=== PATIENT | male | born 1945 | race Caucasian/White ===

== ENCOUNTER 2016-12-25 11:36 | Inpatient (IN) | payer OTHER ==
--- NOTE | ~2016-12-25 | EKG ---
PATIENT: SAEID DEL RIO UNIT #: [id number] Ventricular Rate: 62 BPM Atrial Rate: 62 BPM P-R Interval: 176 ms QRS Duration: 76 ms Q-T Interval: 404 ms QTC Calculation(Bezet): 410 ms P [place]: 32 degrees Calculated R [place]: 55 degrees Calculated T [place]: 56 degrees Diagnosis Line: Normal sinus rhythm Diagnosis Line: Normal ECG Diagnosis Line: When compared with ECG of 26-DEC-2016 07:00, Diagnosis Line: Previous ECG has undetermined rhythm, needs review Diagnosis Line: Confirmed by GEORGE RODRIGUEZ MD ([id number]) on Diagnosis Line: 12/27/2016 11:23:37 AM INTERPRETING MD: MICHAEL BURNS
--- NOTE | ~2016-12-25 | EKG ---
PATIENT: SAEID DEL RIO UNIT #: [id number] Ventricular Rate: 96 BPM Atrial Rate: 96 BPM P-R Interval: 162 ms QRS Duration: 78 ms Q-T Interval: 334 ms QTC Calculation(Bezet): 421 ms P [place]: 34 degrees Calculated R [place]: 49 degrees Calculated T [place]: 35 degrees Diagnosis Line: Normal sinus rhythm Diagnosis Line: Normal ECG Diagnosis Line: No previous ECGs available Diagnosis Line: Confirmed by GEORGE RODRIGUEZ MD ([id number]) on Diagnosis Line: 12/25/2016 3:28:17 PM INTERPRETING MD: MICHAEL BURNS
--- NOTE | ~2016-12-25 | EKG ---
PATIENT: SAEID DEL RIO UNIT #: [id number] Ventricular Rate: 65 BPM Atrial Rate: 65 BPM P-R Interval: 158 ms QRS Duration: 72 ms Q-T Interval: 376 ms QTC Calculation(Bezet): 391 ms P [place]: 45 degrees Calculated R [place]: 35 degrees Calculated T [place]: 40 degrees Diagnosis Line: Normal sinus rhythm Diagnosis Line: Normal ECG Diagnosis Line: When compared with ECG of 26-DEC-2016 11:10, Diagnosis Line: (unconfirmed) Diagnosis Line: No significant change was found Diagnosis Line: Confirmed by ROCAEL ESTRADA MD ([id number]) on 12/27/2016 Diagnosis Line: 9:57:33 PM INTERPRETING MD: SEAN BURNS
--- NOTE | ~2016-12-25 | CO ---
Unit #: [id number] #: [id number] Patient: SAEID DEL RIO [id number] [address] [place], [place] [address] [id number] I MR#: [id number] NAME: SAEID DEL RIO ROOM: 57 Age: 71 Sex: M Admission Date: 12/25/2016 : 1945 Attending Physician: Jack Lux M.D. Primary Care Physician: Primary Care Physician No Consultation Date: 12/26/2016 CONSULTATION REPORT REASON FOR CONSULTATION Elevated creatinine level. HISTORY OF PRESENT ILLNESS The patient is a 71 years old white male with previous history of coronary artery disease, status post coronary stent placement and underwent cardiac catheterization with angioplasty. The patient also known to have hypertension, type 2 diabetes, hyperlipidemia. The patient also gives a previous history of recurrent nephrolithiasis requiring lithotripsy and nephrolithotomy. The patient is also status post right orchiectomy for testicular cancer more than 10 years ago. The patient's creatinine level is noted to be 1.5 on admission and marianne to 1.8 today after contrast. The patient is also noted to be on Zestril. No noted vomiting, diarrhea, fevers, chills. The patient does not admit to taking NSAIDs in the last 2 to 3 days. PAST MEDICAL HISTORY Significant for coronary artery disease with history of PCI and coronary stent placement in 1994, hypertension, hyperlipidemia, type 2 diabetes, history of recurrent nephrolithiasis. The patient reports renal mass, but renal ultrasound does not reveal any masses, there is noted renal cyst. Status post right orchiectomy for testicular cancer. PAST SURGICAL HISTORY Multiple lithotripsy, right orchiectomy, right leg surgery for fracture, and history of tonsillectomy. SOCIAL HISTORY The patient has several pack years history of smoking. Lives at home and rarely drinks alcohol. FAMILY HISTORY Unremarkable for end-stage renal disease. ALLERGIES Penicillin and Levaquin. HOME MEDICATIONS Include Lipitor 80 mg daily, losartan 100 mg daily, Protonix, allopurinol 300 mg daily, aspirin 325 mg daily, Lantus 45 units daily. REVIEW OF SYSTEM CVS: As above. RESPIRATORY: No cough or expectoration. Unit #: [id number] #: [id number] Patient: SAEID DEL RIO GI: No diarrhea. No vomiting. : No hematuria. No dysuria. PHYSICAL EXAMINATION VITAL SIGNS: Blood pressure is 135/84, heart rate is 100 per minute, temperature is 97.9. HEENT: Head is atraumatic. Extraocular movements are intact. NECK: Supple. ABDOMEN: There is no organomegaly. No guarding. No rigidity. No rebound tenderness. EXTREMITIES: There is no edema. BAR USEFUL OR BUSSER: Motor system is intact. Cerebellar system is intact. DIAGNOSTIC STUDIES LABORATORY RESULTS: WBC 7.6, H and H is 12 and 37.1 with a platelet count of 165. Sodium 142, potassium 5, chloride 109, CO2 of 25, BUN is 26, creatinine 1.8, glucose is 159, calcium is 8.8. IMPRESSION 1. Acute kidney injury with mild elevation of the creatinine level secondary to hemodynamic related increase in creatinine less likely to have contrast induced nephropathy. I will continue the Zestril at this time. Volume is satisfactory, would refrain from diuretics at this time. The patient has received Mucomyst and IV fluids. 2. Chronic kidney disease likely stage 3 secondary to hypertensive nephrosclerosis. Check for diabetic nephropathy and proteinuria. 3. Hyperkalemia, underlying Zestril with hemodynamic related increase. Watch for type IV renal tubular acidosis. 4. Diabetes. 5. Coronary artery disease, status post percutaneous coronary intervention. 6. We will follow the renal function. Dictated by.[place]. Jaron Lopez M.D. RA/jermain TD: 12/28/2016 04:31 JOB #: [id number] CONSULTATION REPORT X Jaron Lopez MD CONSULTATION REPORT
--- NOTE | ~2016-12-25 | EKG ---
PATIENT: SAEID DEL RIO UNIT #: [id number] Ventricular Rate: 71 BPM Atrial Rate: 71 BPM P-R Interval: 174 ms QRS Duration: 82 ms Q-T Interval: 404 ms QTC Calculation(Bezet): 439 ms P [place]: 15 degrees Calculated R [place]: 32 degrees Calculated T [place]: 36 degrees Diagnosis Line: Normal sinus rhythm Diagnosis Line: Otherwise normal ECG Diagnosis Line: When compared with ECG of 25-DEC-2016 10:54, Diagnosis Line: Current undetermined rhythm precludes rhythm Diagnosis Line: comparison, needs review Diagnosis Line: Confirmed by ROCAEL ESTARDA MD ([id number]) on 12/26/2016 Diagnosis Line: 7:33:28 PM INTERPRETING MD: SEAN BURNS
--- NOTE | ~2016-12-25 | DS ---
Unit #: [id number] #: [id number] Patient: SAEID DEL RIO [id number] [address] [address] [id number] I MR#: [id number] NAME: SAEID DEL RIO ROOM: 572 Age: 71 Sex: M Admission Date: 12/25/2016 : 1945 Discharge Date: 12/27/2016 Attending Physician: Jack Lux M.D. Primary Care Physician: Primary Care Physician No DISCHARGE SUMMARY DISCHARGE DIAGNOSES 1. Acute coronary syndrome. 2. Status post a cardiac catheterization on 12/26/[address] Lux that reveals the following results:. a. Left main normal. b. Left anterior descending artery with mild plaques up to 30% in the proximal and distal one-third of the left anterior descending artery. c. Circumflex artery with mild plaque in the proximal third. First marginal branch normal. Second marginal branch with 90% stenosis just distal to the origin with remaining vessel normal. d. Right coronary artery with 40% stenosis at the proximal third and distal two-thirds involving the acute right ventricular branch, where there is 50% concentric stenosis. Stent at the junction of the proximal two-third and one-third is widely patent. The distal right coronary artery has 99% stenosis. PDA and PLV branches are normal. e. No left ventriculogram because of renal insufficiency. 3. Status post percutaneous coronary intervention with drug-eluting stent to the distal right coronary artery on 12/26/2016. 4. History of percutaneous coronary intervention and stent in 1994 with percutaneous coronary intervention only in 1993, no details available. 5. Hypertension. 6. Hyperlipidemia. 7. Diabetes mellitus, type 2. 8. Hypomagnesemia. 9. Chronic kidney disease, stage 3. 10. History of testicular cancer. 11. Former smoker. 12. 2D echocardiogram on 12/25/2016 showed an ejection fraction of 60%. Normal structure of the tricuspid and aortic valves. Trace mitral regurgitation. DISCHARGE MEDICATIONS Lipitor 80 mg q.h.s., Losartan 25 mg daily, Lantus 45 units subcu q.h.s., allopurinol 300 mg daily, aspirin 81 mg daily, metoprolol tartrate 25 mg b.i.d., Brilinta 90 mg b.i.d., Prevacid 30 mg daily, and nitroglycerin 0.4 mg sublingual q.5 minutes x3 p.r.n. chest pain. HOSPITAL COURSE This is a 71-year-old white male, who presented to the emergency room with complaint of chest pain that occurred on exertion. He had radiation to his mid scapular and bilateral jaw associated with dyspnea. His chest pain was relieved with rest. His initial troponin was normal; however, it Unit #: [id number] #: [id number] Patient: SAEID DEL RIO did peak to 0.52. It was recommended that the patient undergo a cardiac catheterization, for which he agreed. He was anticoagulated with Lovenox and aspirin. He was started on beta-teo and nitrates. Because of chronic kidney disease where his creatinine was 1.8 on admission, he was given Mucomyst and IV fluids. Dr. Lopez was asked to see the patient and urine studies were done. He felt the patient has chronic kidney disease, stage 3. Renal ultrasound was unremarkable. The following day, he went to the cardiac catheterization, where he was found to have the previously placed stent to the right coronary artery to be widely patent. There was a 99% stenosis in the distal right coronary artery. The circumflex artery's third marginal branch had 90% stenosis. The patient was advised to undergo a stent placement to the distal right coronary artery, which was the culprit artery. The patient agreed. A successful deployment of a 3.0 x 20 mm Synergy drug-eluting stent that was post dilated to 3.21 to the distal right coronary artery reducing the 99% stenosis to no residual. The third marginal branch stenosis was not done because of his kidney disease. 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 The following day, his MB-index was 7.[address] Lopez saw the patient and felt that he can continue Cozaar, but needs to follow his renal function. Dr. Fraga followed the patient for medical management as well as diabetes management. Hemoglobin A1c was done, which was 6.5. There were no changes in his insulin. He has ambulated in the hallway without any difficulties. He had no recurrent chest pain or dyspnea. His right radial site and right groin site are healing well. There is mild bruising to the right radial site. The right groin is soft with no hematoma or bruising. He is stable for discharge today. PHYSICAL EXAMINATION VITAL SIGNS: Blood pressure 121/72, heart rate 61, and temperature 98.0. CHEST: Clear to auscultation. HEART: S1 and S2 with no murmurs, rubs, gallops, or clicks. Regular rate and rhythm. ABDOMEN: Soft with bowel sounds present. EXTREMITIES: Without leg edema. Pedal pulses are palpable. PELVIC: Right groin site without hematoma. There is no bruising. Right radial site with mild bruising, but no hematoma. 3+ pulse. DIAGNOSTIC STUDIES LABORATORY RESULTS: Glucose 192, BUN 28, creatinine 1.8, sodium 141, potassium 4.7, and MB-index 7.0. Hemoglobin A1c 6.5. Cholesterol 115, triglycerides 144, LDL 52, and HDL 34. White count 7.6, hemoglobin 12.0, hematocrit 37.1, and platelet count is 165. IMAGING STUDIES: Renal ultrasound shows chronic medical renal disease. Benign cyst in the kidneys. No hydronephrosis. CARDIOVASCULAR STUDIES: EKG; normal sinus rhythm with a rate of 65 beats per minute, otherwise normal. CONSULTATIONS 1. Dr. Lopez for renal management. 2. Dr. Fraga for diabetes management. DISCHARGE INSTRUCTIONS 1. The patient will be discharged home today. 2. Follow up with Dr. Lux on 01/25/2017 at 2 p.m. 3. Follow up with Renal as per their request. Unit #: [id number] #: [id number] Patient: SAEID DEL RIO 4. We will have a BMP done on 12/29/2016 to follow up with creatinine. The results should be faxed to our office. 5. The cost of Brilinta is affordable for the patient. We will continue on dual anti-platelet therapy with aspirin and Brilinta for at least one year. This has been discussed with the patient. 6. Home on beta-teo, statin, and a lower dose of ARB. Dictated by... Malick Patton A.P.R.N. for Sandra Hoffman/jermain TD: 12/28/2016 15:00 JOB #: [id number] DISCHARGE SUMMARY X Malick Patton APRN X DISCHARGE SUMMARY
--- NOTE | ~2016-12-25 | CR72 ---
[facility] A Service of [facility] RADIOLOGY TEXT RESULTS PATIENT: SAEID DEL RIO LOCATION: [facility] : 44 UNIT #: [id number] AGE: [address]: Jack Lux MD SEX: M ORDER DR: [id number] [facility] [address] [facility]. [place], [place] [address] [id number] MR#: [id number] Acc #: [id number] NAME: SAEID DEL RIO : 1945 SEX: M STUDY DATE/TIME: 12/25/2016 11:26 UNIT: [facility] ROOM: STUDY DESCRIPTION: CR Chest Single View Portable Attending Physician: Toro Moya M.D. Ordering Physician: Toro Moya M.D. Primary Care Physician: No Primary Care Physician MEDICAL IMAGING REPORT This report is preliminary unless electronic signature is present EXAM Portable chest 12/25/2016 COMPARISON None. CLINICAL HISTORY Chest pain, shortness of air for 3 days. FINDINGS There is no pulmonary infiltrate, pleural effusion, or pneumothorax, or suspicious nodule. Heart size and pulmonary vascularity are normal. There is a right IJ Hlgcso-a-Xlgs. Dictated by... Ascencion Perkins M.D. THIS IS AN ELECTRONICALLY VERIFIED REPORT Ascencion Perkins M.D. at 12/25/2016 5:03 PM TEV/carrie TD: 12/25/2016 14:03 JOB #: [id number] MEDICAL IMAGING REPORT COPY
--- NOTE | ~2016-12-25 | US77 ---
[facility] A Service of [facility] RADIOLOGY TEXT RESULTS PATIENT: SAEID DEL RIO LOCATION: [place] [address] : 43 UNIT #: [id number] AGE: [address]: Jack Lux MD SEX: M ORDER DR: [id number] [place] [id number] [facility]. [place], [place] [address] [id number] I MR#: [id number] Acc #: [id number] NAME: SAEID DEL RIO : 1945 SEX: M STUDY DATE/TIME: 12/26/2016 19:14 UNIT: [facility] ROOM: [facility] STUDY DESCRIPTION: US Kidney Bilateral Complete Attending Physician: Jack Lux M.D. Ordering Physician: [facility] Primary Care Physician: Primary Care Physician No MEDICAL IMAGING REPORT This report is preliminary unless electronic signature is present EXAM Renal ultrasound 12/26/2016. INDICATIONS Renal failure. GFR 45.4. Hypertension. Coronary artery disease. Diabetes. COMPARISON None available. FINDINGS The right kidney measures 12.6 cm. The left kidney measures 12.3 cm. Renal cortical echogenicity is increased consistent with chronic medical renal disease. There are some benign cysts within the kidneys. The largest cyst is in the superior left kidney measuring up to 10 cm. No hydronephrosis. The bladder is unremarkable. IMPRESSION 1. Chronic medical renal disease. 2. Benign cysts in the kidneys. 3. No hydronephrosis. Dictated by... Ryan Dorsey M.D. THIS IS AN ELECTRONICALLY VERIFIED REPORT Ryan Dorsey M.D. at 12/27/2016 12:15 PM C/geeta TD: 12/27/2016 10:09 [facility] A Service of [facility] RADIOLOGY TEXT RESULTS PATIENT: SAEID DEL RIO LOCATION: [place] [address] : [birth year] UNIT #: [id number] AGE: [address]: Jack Lux MD SEX: M ORDER DR: JOB #: [id number] MEDICAL IMAGING REPORT COPY
--- NOTE | ~2016-12-25 | HP ---
Unit #: [id number] #: [id number] Patient: SAEID DEL RIO [id number] [address] [place], [place] [address] [id number] MR#: [id number] NAME: SAEID DEL RIO ROOM: 310 Age: 71 Sex: M Admission Date: 12/25/2016 : 1945 Attending Physician: Jack Lux M.D. HISTORY AND PHYSICAL HISTORY OF PRESENT ILLNESS This is a 71-year-old white male who has a history of coronary artery disease for which he underwent PCI only in 1993. In 1994, he had stenosis in another vessel and underwent angioplasty and stent placement. There are no details available. The patient has risk factors for ischemic heart disease including hypertension, hyperlipidemia, and diabetes. The patient comes to the emergency room because of chest pain. He states he usually walks on a treadmill 15-20 minutes six to seven days a week without difficulty. Three to four days ago he developed substernal chest heaviness with radiation to his mid scapula and into bilateral jaws after walking for five minutes. The pressure was relieved with rest. He had another episode today while getting out of the shower. He has no dyspnea, palpitations, dizziness, or diaphoresis. He has not seen a barrel rifler hook for years. He has been taking aspirin daily. He has been seeing Dr. Fraga as a primary care physician in transition to seeing another physician, and his cholesterol levels were elevated. His Lipitor dose was doubled. He denies paroxysmal nocturnal dyspnea or orthopnea but has persistent left lower extremity and ankle edema after a fracture he suffered years ago. In the emergency room, his EKG was normal. Troponin was mildly elevated at 0.08. Magnesium level was low at 1.5. PAST MEDICAL HISTORY 1. Coronary artery disease with history of PCI only in 1993. 2. Percutaneous coronary intervention and stent in 1994. No details available. 3. Hypertension. 4. Hyperlipidemia. 5. Diabetes mellitus type 2. 6. Renal stones. 7. Benign renal mass. 8. Testicular cancer, status post chemotherapy and right testicle removal. 9. Former smoker. PAST SURGICAL HISTORY 1. Multiple lithotripsies. 2. Right testicle removal secondary to cancer. 3. Right leg surgery secondary to fracture. 4. Tonsillectomy. SOCIAL HISTORY Unit #: [id number] #: [id number] Patient: SAEID DEL RIO The patient is a and retired. He quit smoking more than six years ago. He previously smoked a pack of cigarettes daily. He drinks alcohol on rare occasions. He lives in [place], [place]. FAMILY HISTORY Coronary artery bypass surgery in his brother. ALLERGIES PENICILLIN AND LEVAQUIN. HOME MEDICATIONS 1. Atorvastatin 80 mg daily. 2. Losartan 100 mg daily. 3. Lansoprazole 30 mg daily. 4. Allopurinol 300 mg daily. 5. Aspirin 325 mg daily. 6. Lantus 45 units subcutaneous daily. REVIEW OF SYSTEMS CONSTITUTIONAL: Negative for fever or chills. Reports no weight gain or weight loss. HEENT: No headache, hearing or visual changes, or difficulty with swallowing. No dizziness. CARDIOVASCULAR: Has chest pain as described in the History of Present Illness. Denies palpitations. No paroxysmal nocturnal dyspnea or orthopnea. No syncope or near syncope. RESPIRATORY: Negative for dyspnea, cough, or hemoptysis. GASTROINTESTINAL: No abdominal pain, nausea, or vomiting. No constipation or melena. EXTREMITIES: Negative for lower extremity edema. PHYSICAL EXAMINATION VITAL SIGNS: Blood pressure 135/84, heart rate 107, and temperature 97.9. GENERAL: This is a 71-year-old white male who is in no acute respiratory distress. NEUROLOGICAL: He is awake, alert, and oriented. No focal weaknesses. NECK: Trachea is midline. No thyromegaly or lymphadenopathy. No jugular venous distention. HEART: S1 and S2 heart sounds are normal. No murmurs, rubs, or clicks. Regular rate and rhythm. LUNGS: Clear to auscultation. No rales, rhonchi, or wheezing. ABDOMEN: Soft and nontender with bowel sounds present. No organomegaly. EXTREMITIES: Without leg edema. SKIN: Warm and dry. DIAGNOSTIC STUDIES LABORATORY: Hemoglobin 13.2, hematocrit 40.5, platelet count 171,000, and white count 8.5. Sodium 141, potassium 4.8, BUN 20, creatinine 1.5, glucose 128, and magnesium 1.5. Troponin 0.08. IMAGING: Chest x-ray shows no active disease. CARDIOLOGY: EKG shows normal sinus rhythm, rate of 96 beats per minute, otherwise normal. IMPRESSION 1. Unstable angina. 2. History of coronary artery disease, status post percutaneous coronary Unit #: [id number] #: [id number] Patient: SAEID DEL RIO intervention and percutaneous coronary intervention and stent in the . 3. Hypertension. 4. Hyperlipidemia. 5. Diabetes mellitus type 2. 6. Elevated creatinine, questionable chronic kidney disease versus acute kidney injury. 7. Hypomagnesemia. 8. History of testicular cancer. PLAN 1. The patient's troponin is nondiagnostic at present. He has no acute electrocardiogram changes. He is currently chest pain free. 2. Will start on anticoagulation with Lovenox and decrease aspirin. Continue ARB and statin. Will start on beta teo and nitrates. 3. The patient is recommended to undergo cardiac catheterization to reevaluate his coronary anatomy especially given multiple risk factors and exertional angina. The risks and benefits of bleeding, myocardial infarction, CVA, renal and vascular complications, and have been explained. The patient is agreeable. 4. Creatinine is elevated. Will treat with IV fluids and Mucomyst. Repeat creatinine in the a.m. 5. Will obtain 2D echocardiogram to evaluate left ventricular systolic function especially given history of chemotherapy. 6. Supplement potassium. 7. Lipid profile will be obtained. 8. Further recommendations to follow pending results of the cardiac catheterization. 1. Dictated by Malick Patton A.P.R.N. for Sandra Hoffman TD: 12/25/2016 18:50 JOB #: [id number] HISTORY AND PHYSICAL X Malick Patton APRN X HISTORY AND PHYSICAL
[2016-12-25 11:43] LABS: BASOPHIL% 0.3 % (0-2.5); EOSINOPHIL% 0.4 % (0.0-7.0); HEMATOCRIT 40.5 % (38.0-50.0); HEMOGLOBIN 13.2 gm/dL (13.0-16.0); LYMPHOCYTE% 11.6 % (17.0-45.0); MEAN CELL VOLUME 97.5 FL (83-96); MEAN CORPUSCULAR HEMOGLOBIN 31.7 PG (28-34); MEAN CORPUSCULAR HGB CONC 32.5 g/dL (30-36); MEAN PLATELET VOLUME 8.7 FL (6.5-11.5); MONOCYTE# 0.4 X10e3 (0-1.0); MONOCYTE% 4.7 % (3.0-12.0); PLATELET COUNT 171 X10e3 (140-420); RED BLOOD COUNT 4.16 X10e (3.90-5.60); RED CELL DISTRIBUTION WIDTH 15.3 % (11.0-15.5); WHITE BLOOD COUNT 8.5 X10e3 (4.0-10.5)
[2016-12-25 11:46] LABS: DIFF IND NO
[2016-12-25 11:50] LABS: POC - TROPONIN 0.08 ng/mL (<=0.05)
[2016-12-25 12:11] LABS: ALBUMIN SERUM 4.1 g/dL (3.5-5.0); BILIRUBIN, DIRECT 0.2 mg/dL (0.0-0.2); BILIRUBIN,INDIRECT 0.8 mg/dL (0.0-0.9); BUN/CREATININE RATIO 13.33; CALCIUM SERUM 9.3 mg/dL (8.4-10.2); CREATININE SERUM 1.5 mg/dL (0.6-1.4); GLOM FILT RATE Estimated 48.9 mL/min (>60); MAGNESIUM 1.5 mg/dL (1.6-3.0); POTASSIUM 4.8 mmol/L (3.5-5.1); PROTEIN TOTAL SERUM 6.9 g/dL (6.0-8.3)
[2016-12-25 14:28] LABS: POC - CKMB 1.2 ng/mL (0.0-7.9); POC - TROPONIN 0.07 ng/mL (<=0.05)
[2016-12-25] MEDS ORDERED: COZAAR25 MG PO (14:47)
[2016-12-25] MEDS ORDERED: ATORVASTATIN CA80 MG PO (14:47)
[2016-12-25] MEDS ORDERED: BAYER ASPIRIN325 M1 PO (14:48)
[2016-12-25] MEDS ORDERED: ALLOPURINOL300 MG PO (14:48)
[2016-12-25] MEDS ORDERED: LANSOPRAZOLE30 M2 PO (14:48)
[2016-12-25] MEDS ORDERED: LANTUS100 U/ML SUBQ (14:49)
[2016-12-25 19:56] LABS: CK TOTAL 56 IU/L (36-174)
[2016-12-26 01:37] LABS: CK TOTAL 48 IU/L (36-174)
[2016-12-26 06:13] LABS: HEMATOCRIT 37.1 % (38.0-50.0); MEAN CELL VOLUME 97.7 FL (83-96); MEAN CORPUSCULAR HEMOGLOBIN 31.7 PG (28-34); MEAN CORPUSCULAR HGB CONC 32.4 g/dL (30-36); MEAN PLATELET VOLUME 8.9 FL (6.5-11.5); RED BLOOD COUNT 3.79 X10e (3.90-5.60); WHITE BLOOD COUNT 7.6 X10e3 (4.0-10.5)
[2016-12-26 06:16] LABS: PARTIAL THROMBOPLASTIN TIME 27.7 SECONDS (23.5-31.3); PROTHROMBIN TIME (PATIENT) 10.5 SECONDS (9.6-11.5)
[2016-12-26 07:23] LABS: BUN/CREATININE RATIO 14.44; CALCIUM SERUM 8.8 mg/dL (8.4-10.2); CREATININE SERUM 1.8 mg/dL (0.6-1.4); GLOM FILT RATE Estimated 39.6 mL/min (>60)
[2016-12-26 18:44] LABS: CREATININE SERUM 1.6 mg/dL (0.6-1.4); GLOM FILT RATE Estimated 45.4 mL/min (>60)
[2016-12-26 19:30] LABS: ANGIO %MB 6.1 % (0.0-4.0); ANGIO MB 3.7 ng/ml
[2016-12-27 03:53] LABS: BUN/CREATININE RATIO 15.55; CALCIUM SERUM 8.4 mg/dL (8.4-10.2); CREATININE SERUM 1.8 mg/dL (0.6-1.4); GLOM FILT RATE Estimated 39.6 mL/min (>60); POTASSIUM 4.7 mmol/L (3.5-5.1)
[2016-12-27 04:16] LABS: ANGIO MB 5.1 ng/ml
[2016-12-27] MEDS ORDERED: METOPROLOL TART25 MG PO (16:02)
[2016-12-27] MEDS ORDERED: BRILINTA90 MG PO (16:03)
[2016-12-27] MEDS ORDERED: NITROGLYCERIN0.4 MG SL (16:05)
[2016-12-30 23:44] LABS: CALCIUM (PTHINTACT) 9.5 mg/dL (8.6-10.3)
== END 2016-12-27 17:00 | disposition home or self-care (01) | DRG 247 ==
LOC: CED 11:36 → CEDOF 13:40 → C3A PCU 18:14 → C5C 12-26 17:57
PROVIDERS: Emergency Medicine; Internal Medicine Cardiovascular Disease; Internal Medicine Nephrology
PROC: B24BYZZ Ultrasonography of Heart with Aorta using Other Contrast (ICD-10-PCS; principal; 2016-12-25)
PROC: 027034Z Dilation of Coronary Artery, One Artery with Drug-eluting Intraluminal Device, Percutaneous Approach (ICD-10-PCS; 2016-12-26)
PROC: 4A023N7 Measurement of Cardiac Sampling and Pressure, Left Heart, Percutaneous Approach (ICD-10-PCS; 2016-12-26)
PROC: B211YZZ Fluoroscopy of Multiple Coronary Arteries using Other Contrast (ICD-10-PCS; 2016-12-26)
DX: I25.110 Atherosclerotic heart disease of native coronary artery with unstable angina pectoris (principal); N17.9 Acute kidney failure, unspecified; E11.21 Type 2 diabetes mellitus with diabetic nephropathy; E83.42 Hypomagnesemia; E87.5 Hyperkalemia; E78.5 Hyperlipidemia, unspecified; Z87.891 Personal history of nicotine dependence; Z85.47 Personal history of malignant neoplasm of testis; Z87.442 Personal history of urinary calculi; Z88.0 Allergy status to penicillin; Z79.82 Long term (current) use of aspirin; Z95.5 Presence of coronary angioplasty implant and graft; Z79.4 Long term (current) use of insulin; I12.9 Hypertensive chronic kidney disease with stage 1 through stage 4 chronic kidney disease, or unspecified chronic kidney disease; N18.3 Chronic kidney disease, stage 3 (moderate); E11.22 Type 2 diabetes mellitus with diabetic chronic kidney disease
CPT/HCPCS: 36415; 71010; 76770; 80048; 80061; 80076; 82310; 82550; 82553; 82565; 82947; 83036; 83735; 83970; 84484; 84550; 85025; 85027; 85347; 85610; 85730; 93005; 93306; 99285; C1725; C1769; C1874; C1887; C1894; J0461; J1642; J1644; J1650; J2250; J2270; J2370; J2405; J3010; J3475